=== PATIENT | male | born 1985 | race Two or more races ===

== ENCOUNTER 2019-09-18 02:07 | Emergency (ER) | payer OTHER ==
[~2019-09-18] VITALS: Ht 175.3 cm; Wt 68.0 kg
--- NOTE | 2019-09-18 02:27 | NUR ---
[facility] [employer] FOR MEDICAL CLEARANCE FOR BOOKING. PT C/O COUGH X COUPLE WEEKS PER TO ER BED 11
--- NOTE | 2019-09-18 02:49 | NUR ---
COVID SWAB COLLECTED, SENT TO LAB
[2019-09-18 03:24] VITALS: BP 130/71
== END 2019-09-18 03:24 ==
LOC: ER 02:08
DX: Z04.89 Encounter for examination and observation for other specified reasons (principal); R05 Cough; Z20.828 Contact with and (suspected) exposure to other viral communicable diseases
CPT/HCPCS: 71045; 99284; C9803; U0003